=== PATIENT | female | born 1995 | race American Indian/Alaskan Native ===

== ENCOUNTER 2019-02-28 09:31 | Emergency (ER) | payer MEDICAID ==
--- NOTE | 2019-02-28 10:23 | Emergency Department Report ---
HPI - General Chief Complaint: Chest Pain Time Seen by Provider: 02/28/19 09:58 - HPI HPI: 23-year-old -Greek female presents to the emergency department with a complaint of swelling to the hands, generalized body itching, and some hives that she had to her thighs have been going on since yesterday. The hives have since resolved. The patient also complains of a one-week history of some generalized chest tightness and shortness of breath. She denies any past medical history. She denies any tobacco or illicit drug use or abuse. No recen t travel or sick contacts at home. Patient says that she tried some Benadryl for the itching without much relief. She does have a PCP but has not seen them regarding her symptoms. ED Past Medical Hx - Past Medical History Previous Medical History?: No - Surgical History Past Surgical History?: No - Social History Smoking Status: Never Smoker Substance Use Type: Alcohol - Medications Home Medications: Home Medications Medication Instructions Recorded Confirmed Last Taken Type Famotidine [Pepcid] 20 mg PO BID #6 tablet 02/28/19 Unknown Rx diphenhydrAMINE [Benadryl CAP] 25 mg PO Q8HR PRN #9 capsule 02/28/19 Unknown Rx predniSONE [Deltasone] 20 mg PO BID #6 tab 02/28/19 Unknown Rx ED Review of Systems ROS: Stated complaint: CHEST PAINS/HAND/FEET SWELLING/PAIN Other details as noted in HPI Comment: All other systems reviewed and negative Constitutional: denies: chills, fever Eyes: denies: eye pain, vision change ENT: denies: ear pain, throat pain Respiratory: shortness of breath. denies: cough Cardiovascular: chest pain, edema (hands) Gastrointestinal: denies: abdominal pain, vomiting Genitourinary: denies: dysuria, discharge Musculoskeletal: joint swelling (hands). denies: back pain Skin: rash, pruritus Neurological: denies: headache, weakness, numbness Physical Exam - Physical Exam Vital Signs: Vital Signs 02/28/19 09:45 Temperature 98.7 F Pulse Rate 90 Respiratory 18 Rate Blood Pressure 107/5 O2 Sat by Pulse 97 Oximetry Physical Exam: GENERAL: The patient is well-developed well-nourished. HEENT: Normocephalic. Atraumatic. Patient has moist mucous membranes. EYES: Extraocular motions are intact. Pupils are equal and reactive to light bilaterally. NECK: Supple. Trachea is midline. CHEST/LUNGS: Clear to auscultation. There is no respiratory distress noted. HEART/CARDIOVASCULAR: Regular. There is no tachycardia. There is no obvious murmur. ABDOMEN: Abdomen is soft, nontender. Patient has normal bowel sounds. There is no abdominal distention. SKIN: Skin is warm and dry. There is some mild nonpitting swelling of the bilateral hands. NEURO: The patient is awake, alert, and oriented. The patient is cooperative. The patient has no focal neurologic deficits. The patient has normal speech. MUSCULOSKELETAL: There is no tenderness or deformity. There is no limitation range of motion. There is no evidence of acute injury. ED Course Vital Signs 02/28/19 09:45 Temperature 98.7 F Pulse Rate 90 Respiratory 18 Rate Blood Pressure 107/5 O2 Sat by Pulse 97 Oximetry ED Medical Decision Making - Lab Data Result diagrams: 02/28/19 10:45 02/28/19 10:45 - EKG Data -: EKG Interpreted by Me EKG shows normal: sinus rhythm (sinus arrhythmia), axis, intervals, QRS complexes, ST-T waves Rate: normal - EKG Data When compared to previous EKG there are: previous EKG unavailable Interpretation: normal EKG - Radiology Data Radiology results: image reviewed interpreted by me: Chest x-ray does not show any pneumothorax, pleural effusion, pneumonia or obvious focal consolidation. - Medical Decision Making Patient usually presents with a complaint of some swelling to her hands, generalized body itching and some hives that are transient to the legs. She had complained to triage of some intermittent chest pain and shortness of breath as well. An EKG was done that does not show any ST elevation AR, ischemia or dysrhythmia. Chest x-ray has not shown any pleural effusions, pneumothorax, pneumonia, focal consolidation, or any other acute process. Her labs were unremarkable including a negative troponin and BNP level. She did have some mild swelling of the bilateral hands. About an hour into her presentation, the patient started complaining of some mild lip swelling to the bottom right side of the lip. She was of course reevaluated again and there may be some mild swelling of the lip there is no signs of any swelling of the tongue, swelling of the throat, drooling, trismus, shortness of breath. She was given Solu-Medrol, Pepcid, Benadryl and epinephrine. She was reevaluated multiple times over multiple hours and her symptoms have started to improve. All of her symptoms may be related to allergic reaction although the allergen/etiology is unknown. Vital signs stable throughout her ED course. The patient appears safe for discharge home at this time. She will go home with Pepcid, prednisone and Benadryl andreturn to the emergency department immediately with any worsening of her symptoms or if any acute distress. - Differential Diagnosis CHF, allergic reaction, AR, pneumonia Critical Care Time: No Critical care attestation.: If time is entered above; I have spent that time in minutes in the direct care of this critically ill patient, excluding procedure time. ED Disposition Clinical Impression: Angioedema Qualifiers: Encounter type: initial encounter Qualified Code(s): T78.3XXA - Angioneurotic edema, initial encounter Allergic reaction Qualifiers: Encounter type: initial encounter Qualified Code(s): T78.40XA - Allergy, unspecified, initial encounter Disposition: TO HOME OR SELFCARE Is pt being admited?: No Condition: Stable Instructions: Angioedema (ED), Dyspnea (ED) Additional Instructions: Please follow up with a primary care physician in the next 2 days. Return to the emergency Department with any worsening of your symptoms, including any swelling of the tongue or throat, increased shortness of breath, or any acute distress. Take the medications as prescribed. Prescriptions: diphenhydrAMINE [Benadryl CAP] 25 mg PO Q8HR PRN #9 capsule PRN Reason: Allergic Reaction predniSONE [Deltasone] 20 mg PO BID #6 tab Famotidine [Pepcid] 20 mg PO BID #6 tablet Referrals: MISAEL LINARES MD [Staff Physician] - 2-3 Days [facility] [Outside] - 2-3 Days Time of Disposition: 15:27
[2019-02-28 11:04] LABS: Basophils # (Auto) 0.1 K/mm3 (0.0-0.1); Basophils % (Auto) 0.8 % (0.0-1.8); Eosinophils % (Auto) 0.8 % (0.0-4.3); Hematocrit 39.8 % (30.3-42.9); Hemoglobin 13.5 gm/dl (10.1-14.3); Lymphocytes # (Auto) 1.6 K/mm3 (1.2-5.4); Lymphocytes % (Auto) 25.6 % (13.4-35.0); Mean Corpuscular HGB Conc 34 % (30-34); Mean Corpuscular Volume 81 fl (79-97); Monocytes # (Auto) 0.8 K/mm3 (0.0-0.8); Monocytes % (Auto) 13.8 % (0.0-7.3); Platelet Count 277 K/mm3 (140-440); Red Blood Count 4.93 M/mm3 (3.65-5.03); Red Cell Distribution Width 14.1 % (13.2-15.2)
--- NOTE | 2019-02-28 11:09 | XRay Report ---
PROCEDURE: XR CHEST ROUTINE 2V TECHNIQUE: 2 view chest HISTORY: CP COMPARISONS: None FINDINGS: Trachea midline. Heart size normal. No pneumothorax. No effusion. No acute airspace disease. No acute bony abnormality. IMPRESSION: No active pulmonary disease.. This document is electronically signed by Julio César Wakefield MD., February 28 2019 11:07:39 AM ET
[2019-02-28 11:42] LABS: BUN/Creatinine Ratio 19; Blood Urea Nitrogen 13 mg/dL (7-17); Calcium 8.6 mg/dL (8.4-10.2); Hemolysis Index 6
[2019-02-28] MEDS ORDERED: PEPCID IV ONE (12:04)
[2019-02-28] MEDS ORDERED: SOLU-Medrol IV ONE (12:04)
[2019-02-28] MEDS ORDERED: ADRENALINE P/F SUB-Q ONE (12:05)
[2019-02-28] MEDS ORDERED: BENADRYL IV ONE (12:05)
[2019-02-28] MEDS ORDERED: NACL 0.9% 1000 ML 1,000 ML ONE (12:24)
[2019-02-28] MEDS ORDERED: NACL 0.9% 500 ML 500 ML IV SCH (13:00)
[2019-02-28 15:53] VITALS: BP 101/53
== END 2019-02-28 15:48 | disposition home or self-care (01) ==
LOC: ED 09:31
DX: T78.3XXA Angioneurotic edema, initial encounter (principal); T78.40XA Allergy, unspecified, initial encounter; Y92.89 Other specified places as the place of occurrence of the external cause
CPT/HCPCS: 36415; 71046; 80048; 83880; 84484; 85025; 93005; 93010; 96372; 96374; 96375; 99284; J0171; J1200; J2930; J7030

== ENCOUNTER 2020-06-28 08:11 | Inpatient (IN) | payer MEDICAID ==
[2020-06-28] MEDS ORDERED: LACTATED RINGERS 2,000 ML ONE (08:52)
[2020-06-28] MEDS ORDERED: AMPICILLIN/NS 2 GM/100 ML 2 GM/100 ML BAG IV ONE (08:54)
[2020-06-28] MEDS ORDERED: fentaNYL 100 MCG/2 ML INJ ONE (08:56)
[2020-06-28] MEDS ORDERED: ONDANSETRON 4 MG/2 ML INJ ONE (08:57)
[2020-06-28] MEDS ORDERED: TERBUTALINE 1 MG/1 ML INJ SUB-Q PRN (09:00)
[2020-06-28] MEDS ORDERED: AMPICILLIN/NS 2 GM/100 ML 2 GM/100 ML BAG IV SCH (09:00)
[2020-06-28] MEDS ORDERED: LIDOCAINE (2%) 20 MG/1 ML VIAL 20 ML MDV INFILTRATI SCH (09:00)
[2020-06-28] MEDS ORDERED: MINERAL OIL 30 ML ORAL LIQD PO PRN (09:00)
[2020-06-28 09:09] LABS: Hematocrit 32.5 % (30.3-42.9); Hemoglobin 10.9 gm/dl (10.1-14.3); Mean Corpuscular HGB Conc 34 % (30-34); Mean Corpuscular Volume 76 fl (79-97); Platelet Count 228 K/mm3 (140-440); Red Blood Count 4.28 M/mm3 (3.65-5.03); Red Cell Distribution Width 15.3 % (13.2-15.2)
--- NOTE | 2020-06-28 09:19 | History and Physical Report ---
History of Present Illness Date of examination: 06/28/20 Date of admission: 06/28/2020 Chief complaint: Leaking fluid at 0815 History of present illness: 25yo, @ 39.0 wks, initiated care with [employer] @ 11.0 wks gestation. has been complicated by sickle cell trait; GBS + stats; Low TSH; and Vit D deficiency. She presents to [facility] with reports of leaking clear fluids since 0815 this AM and painful ctxs. Reports +FM. Denies any VB. Labs: O+, antibody negative; PAP smear negative; rubella immune; VDRL non-reactive; HBsAg negative HIV negative; GC/Chlamydia/Trich negative; MSAFP/Multiple markers negative; Vit D - 9.7; 1 hr gtt:92; GBS positive. Past History Past Medical History: no pertinent history Past Surgical History: no surgical history Family/Genetic History: diabetes (Type II - PGM), stroke (PGM), other (Seizure disorder - MGM) Social history: , lives with family, full code. denies: smoking, alcohol abuse, prescription drug abuse, IV drug use - Obstetrical History Expected Date of Delivery: 07/05/20 Actual Gestation: 39 Week(s) 0 Day(s) : 3 Para: 1 Hx # Term Pregnancies: 1 Number of Pregnancies: 0 Spontaneous Abortions: 0 Induced : 1 Number of Living Children: 1 #1 Gender: Female year: 2[birth year] Birthweight: 3.487 kg Method of Delivery: Vaginal Gestational age at delivery: 41 (IOL) Complications: none Medications and Allergies Allergies Allergy/AdvReac Type Severity Reaction Status Date / Time No Known Allergies Allergy Verified 02/28/19 12:42 Home Medications Medication Instructions Recorded Confirmed Last Taken Type Famotidine [Pepcid] 20 mg PO BID #6 tablet 02/28/19 Unknown Rx diphenhydrAMINE [Benadryl CAP] 25 mg PO Q8HR PRN #9 capsule 02/28/19 Unknown Rx predniSONE [Deltasone] 20 mg PO BID #6 tab 02/28/19 Unknown Rx Active Meds: Active Medications Butorphanol Tartrate (Stadol) 2 mg IV Q2H PRN PRN Reason: Pain , Severe (7-10) Ephedrine Sulfate (Ephedrine Sulfate) 10 mg IV Q2M PRN PRN Reason: Hypotension Fentanyl (Sublimaze) 100 mcg IV Q2H PRN PRN Reason: Pain,Severe (7-10) LABOR PAIN Oxytocin/Sodium Chloride (Pitocin/Ns 20 Unit/1000ml Drip) 20 units in 1,000 mls @ 125 mls/hr IV DIRECT JORDYN Lactated Ringer's (Lactated Ringers) 1,000 mls @ 125 mls/hr IV DIRECT JORDYN Ampicillin Sodium (Ampicillin/Ns 2 Gm/100 Ml) 2 gm in 100 mls @ 100 mls/hr IV ONCE JORDYN; Protocol Stop: 06/28/20 13:00 Lidocaine (Xylocaine 2%) 20 ml INFILTRATI ONCE JORDYN Stop: 06/29/20 08:59 Mineral Oil (Mineral Oil) 30 ml PO QHS PRN PRN Reason: Constipation Terbutaline Sulfate (Brethine) 0.25 mg SUB-Q ONCE PRN PRN Reason: Hyperstimulation/Hypertonicity Review of Systems All systems: negative Genitourinary: leakage of fluid (since 0815 this am), contractions - Vital Signs Vital signs: Vital Signs Pulse Pulse Ox 91 H 99 06/28/20 08:51 06/28/20 08:51 Temp Pulse Resp BP Pulse Ox 98.0 F 96 H 16 125/74 97 06/28/20 09:06 06/28/20 09:11 06/28/20 09:06 06/28/20 09:11 06/28/20 09:06 - Physical Exam Breasts: Positive: normal Cardiovascular: Regular rate Lungs: Positive: Normal air movement Abdomen: Positive: other (gravid) Vagina: Positive: discharge (clear fluids) Uterus: Positive: enlarged (S=D) Deep Tendon Reflex Grade: Normal +2 - Obstetrical FHR: category 1 Uterine Contraction Monitor Mode: External Cervical Dilatation: 6 (per RN) Cervical Effacement Percentage: 50 station: -2 Uterine Contraction Frequency (min): 5-7 Uterine Contraction Pattern: Irregular Uterine Tone Measurement Phase: Resting Uterine Contraction Intensity: Moderate Results All other labs normal. Assessment and Plan - Patient Problems (1) SROM (spontaneous rupture of membranes) Current Visit: Yes Status: Acute Plan to address problem: Admit to L&D Pain meds as desired Anticipate (2) Positive GBS test Current Visit: Yes Status: Acute Plan to address problem: Initiate GBS protocol (3) Sickle cell trait Current Visit: Yes Status: Acute
[2020-06-28] MEDS ORDERED: fentaNYL 100 MCG/2 ML INJ IV PRN (09:30)
[2020-06-28] MEDS ORDERED: ePHEDrine SULFATE 50 MG/1 ML INJ IV PRN (09:30)
[2020-06-28] MEDS ORDERED: BUTORPHANOL 2 MG/1 ML INJ IV PRN (09:30)
[2020-06-28] MEDS: LACTATED RINGERS 1,000 ML IV SCH ×2 (10:13→12:00)
[2020-06-28] MEDS ORDERED: DEXMEDETOMIDINE 200 MCG/2 ML VIAL IV ONE (10:18)
[2020-06-28] MEDS ORDERED: NALOXONE 2 MG/2 ML INJ IV PRN (10:39)
--- NOTE | 2020-06-28 10:41 | Anesthesia Consultation ---
Anesthesia Consult and Med Hx Date of service: 06/28/20 - Airway Anesthetic Teeth Evaluation: Good ROM Head & Neck: Adequate Mental/Hyoid Distance: Adequate Mallampati Class: Class II Intubation Access Assessment: Probably Good - Pulmonary Exam CTA: Yes - Cardiac Exam Cardiac Exam: RRR - Pre-Operative Health Status ASA Pre-Surgery Classification: ASA2 Proposed Anesthetic Plan: Epidural - Pulmonary Hx Smoking: No Hx Asthma: No Hx Sleep Apnea: No - Cardiovascular System Hx Hypertension: No - Central Nervous System Hx Seizures: No Hx Psychiatric Problems: No - Gastrointestinal Hx Gastroesophageal Reflux Disease: No - Endocrine Hx Renal Disease: No Hx Hypothyroidism: No Hx Hyperthyroidism: No - Hematic Hx Anemia: Yes Hx Sickle Cell Disease: Yes (Sickle cell trait) - Other Systems Hx Alcohol Use: No
--- NOTE | 2020-06-28 10:42 | Progress Note ---
Labor Epidural - Labor Epidural Start Time: 10:21 Stop Time: 10:30 Performed by:: HAYLEE WATSON Procedure: Patient is requesting a laboring epidural for laboring pain. Patient IDed, H&P reviewed, all questions and concerns were answered, and consent was signed. Timeout was performed at bedside. Patient in sitting position. Sterile prep and drape was performed. 3ml of 1% lidocaine skin wheal at L[3]- L [4]. 18- gauge Touhy epidural needle was advanced to loss of resistance with air technique. Negative CSF negative blood. Epidural catheter advanced to [12] centimeters. [-] Aspiration [-] test dose. Sterile dressing applied. Patient tolerated procedure.
[2020-06-28] MEDS ORDERED: NalbUPHINE 10 MG/1 ML INJ IV PRN (11:00)
[2020-06-28] MEDS ORDERED: fentaNYL-BUPIV 2 MCG/ML-0.125% 200 MCG/100 ML BAG EPIDURAL SCH (11:00)
[2020-06-28] MEDS ORDERED: ONDANSETRON 4 MG/2 ML INJ IV PRN (11:00)
[2020-06-28] MEDS ORDERED: diphenhydrAMINE 50 MG/ML VIAL IV PRN (11:00)
[2020-06-28] MEDS ORDERED: AMPICILLIN/NS 1 GM/50 ML 1 GM/50 ML BAG IV SCH (14:00)
[2020-06-28] MEDS ORDERED: OXYTOCIN DRIP 30,000 MILLIUNITS/500 ML BAG IV ONE (14:03)
[2020-06-28] MEDS: OXYTOCIN 20 UNIT/1000ML DRIP 20 UNITS/1,000 ML BAG IV SCH ×2 (15:26→16:20)
[2020-06-28] MEDS ORDERED: MAGNESIUM HYDROXIDE (MOM) ORAL LIQD UDC PO PRN (15:35)
[2020-06-28] MEDS ORDERED: PROMETHAZINE 25 MG TAB PO PRN (15:35)
[2020-06-28] MEDS ORDERED: WITCH HAZEL/ GLYCERIN PAD TP PRN (15:35)
[2020-06-28] MEDS ORDERED: oxyCODONE /ACETAMINOPHEN 5-325MG TAB PO PRN (15:35)
[2020-06-28] MEDS ORDERED: LANOLIN/ZINC/DIMETHICONE (LANSINOH) 7 GM TP PRN (15:35)
[2020-06-28] MEDS ORDERED: diphenhydrAMINE 25 MG CAP PO PRN (15:35)
--- NOTE | 2020-06-28 15:44 | Procedure Note ---
OB Delivery Note - Delivery Date of Delivery: 06/28/20 (1520) Surgeon: DONNA BOCANEGRA (CNM) Estimated blood loss: 200cc - Vaginal Delivery presentation: vertex Delivery position: OA (DAVID) Intrapartum events: none Delivery induction: none Delivery augmentation: rupture of membranes (SROM @ 0815 on 06/28/2020) Delivery monitor: external FHT, external uterine Route of delivery: Delivery placenta: spontaneous (1526) Delivery cord: 3 umbilical vessels Episiotomy: none Delivery laceration: none Anesthesia: epidural Delivery comments: of viable, alert, crying infant, placed directly to maternal abdomen. Cord double clamp, cut by FOB after cessation of pulsation. Cord blood collected and sent to lab. Placenta spontaneously delivered, espitia, disposed per hospital policy. Uterus firm @ U-1. Perineum intact, hemostasis maintained. Mother and baby safe, stable in left in care of RN. - Infant A at 1 minute: 8 at 5 minutes: 9 Gender: Male (Weight: 3416 gms (7lbs 8ozs) 19 inches)
[2020-06-28] MEDS: IBUPROFEN 600 MG TAB PO SCH ×2 (18:42→23:33)
[2020-06-29] MEDS: IBUPROFEN 600 MG TAB PO SCH ×2 (05:19→13:05)
[2020-06-29 07:00] LABS: Hematocrit 29.6 % (30.3-42.9); Hemoglobin 9.8 gm/dl (10.1-14.3)
--- NOTE | 2020-06-29 11:35 | Post Anesthesia Evaluation ---
- Post Anesthesia Evaluation Patient Participated: Yes Airway Patent: Yes Stable Respiratory Function: Yes Nausea/Vomiting: No Temp > 96.8F: Yes Pain Manageable: Yes Adequeate Hydration: Yes Anesthesia Complications: No Block Receding Appropriately: Yes Patient on Ventilator: No
[2020-06-29] MEDS ORDERED: FERROUS SULFATE 325 MG TAB PO SCH (12:00)
--- NOTE | 2020-06-29 12:21 | Progress Note ---
Assessment and Plan A: PP Day #1 Asymptomatic Anemia P: Follow Routine Orders Continue FeSO4 D/C home today per patient request RTO in 6 Weeks Subjective - Subjective Date of service: 06/29/20 Patient reports: appetite normal, voiding normally, pain well controlled, flatus, ambulating normally : doing well, bottle feeding (and ) Objective - Vital Signs Latest vital signs: Vital Signs Temp Pulse Resp BP BP Pulse Ox 06/29/20 08:30 98 F 93 H 20 108/61 06/29/20 00:53 98.4 F 85 18 101/56 97 06/28/20 20:25 97.8 F 83 18 105/55 96 06/28/20 17:44 97.9 F 86 18 102/55 100 06/28/20 17:20 72 108/56 06/28/20 17:19 98.9 F 108/56 06/28/20 15:03 103 H 100 06/28/20 14:59 100 H 129/83 06/28/20 14:58 103 H 99 06/28/20 14:55 98.2 F 06/28/20 14:53 90 99 06/28/20 14:48 100 H 100 06/28/20 14:43 107 H 99 06/28/20 14:38 79 100 06/28/20 14:37 95 H 91 06/28/20 14:33 104 H 100 06/28/20 14:31 143/73 06/28/20 14:30 93 06/28/20 14:28 91 H 100 06/28/20 14:23 88 100 06/28/20 14:18 89 100 06/28/20 14:13 98 H 100 06/28/20 14:08 87 100 06/28/20 14:03 79 100 06/28/20 13:58 86 100 06/28/20 13:53 77 99 06/28/20 13:48 80 99 06/28/20 13:43 90 100 06/28/20 13:38 88 99 06/28/20 13:33 89 99 06/28/20 13:32 88 112/79 06/28/20 13:28 89 100 06/28/20 13:23 81 100 06/28/20 13:18 88 99 06/28/20 13:13 80 100 06/28/20 13:08 79 100 06/28/20 13:03 83 100 06/28/20 12:59 80 103/64 06/28/20 12:58 85 99 06/28/20 12:53 85 99 06/28/20 12:48 84 98 06/28/20 12:43 85 98 06/28/20 12:38 80 98 06/28/20 12:33 86 99 06/28/20 12:32 83 94 06/28/20 12:31 93 H 100/58 Intake and Output 06/28/20 06/29/20 06/29/20 22:59 06:59 14:59 Intake Total 112.5 600 320 Output Total 1100 Balance 112.5 -500 320 Intake: IV 112.5 PITOCin/NS 20 UNIT/1000ML 112.5 DRIP 20 units In 1,000 ml @ 125 mls/hr IV DIRECT JORDYN Rx#:[id number] Oral 320 Intake, Free Water 600 Output: Urine 1100 Void 1100 Other: Total, Intake Amount 320 Total, Output Amount 500 Estimated Blood Loss 200 - Exam Breasts: Present: normal Cardiovascular: Present: Regular rate Lungs: Present: Clear to auscultation, Normal air movement Abdomen: Present: normal appearance, soft, normal bowel sounds Uterus: Present: normal, firm, fundal height below umbilicus Extremities: Present: normal - Labs Labs: Abnormal lab results 06/29/20 Range/Units 06:11 Hgb 9.8 L (10.1-14.3) gm/dl Hct 29.6 L (30.3-42.9) %
--- NOTE | 2020-06-29 12:25 | Discharge Summary ---
Providers - Providers Date of Admission: 06/28/20 08:12 Date of discharge: 06/29/20 Attending physician: ANALIA MOE MD Primary care physician: ANALIA MOE MD Hospitalization Reason for admission: rupture of membranes Delivery: Episiotomy: none Laceration: none Other procedures: none complications: none Discharge diagnosis: IUP at term delivered Mico baby: male Condition at discharge: Good Disposition: DC-01 TO HOME OR SELFCARE Plan - Provider Discharge Summary Activity: routine, no sex for 6 weeks, no heavy lifting 4 weeks Additional instructions: [] Smoking cessation referral if applicable(refer to patient education folder for contact #) [] Refer to [facility] Booklet Call your doctor immediately for: * Fever > 100.5 * Heavy vaginal bleeding ( >1 pad per hour) * Severe persistent headache * Shortness of breath * Reddened, hot, painful area to leg or breast * Drainage or odor from incision. * Keep incision clean and dry at all times and follow doctor's instructions regarding bathing/showering - Follow up plan Follow up: ANALIA MOE MD [Primary Care Provider] - 6 Weeks
[2020-06-29 16:59] VITALS: BP 99/51
== END 2020-06-29 18:39 | disposition home or self-care (01) | DRG 775 ==
LOC: TRG 08:11 → LD 08:11 → APU 08:11 → TRG 08:12 → LD 08:12 → OB 17:58
PROVIDERS: ADMIT Obstetrics & Gynecology; ATTEND Obstetrics & Gynecology
PROC: 10E0XZZ Delivery of Products of Conception, External Approach (ICD-10-PCS; principal; 2020-06-28)
PROC: 3E0R3BZ Introduction of Anesthetic Agent into Spinal Canal, Percutaneous Approach (ICD-10-PCS; 2020-06-28)
PROC: 00HU33Z Insertion of Infusion Device into Spinal Canal, Percutaneous Approach (ICD-10-PCS; 2020-06-28)
DX: O99.824 Streptococcus B carrier state complicating childbirth (principal); Z37.0 Single live birth; Z3A.39 39 weeks gestation of pregnancy; Z83.3 Family history of diabetes mellitus; Z82.0 Family history of epilepsy and other diseases of the nervous system; Z82.3 Family history of stroke; O99.02 Anemia complicating childbirth; D57.3 Sickle-cell trait
CPT/HCPCS: 36415; 85014; 85018; 85027; 86850; 86900; 86901; G0378; J0290; J2405; J2590; J3010; J3490; J7120